=== PATIENT | female | born 1995 | race Caucasian/White ===

== ENCOUNTER 2019-11-27 20:38 | Emergency (ER) | payer OTHER ==
[~2019-11-27] VITALS: Ht 167.6 cm; Wt 108.9 kg
[2019-11-27 20:52] VITALS: BP_SYST 159
--- NOTE | 2019-11-27 21:03 | NUR ---
Patient to ER bed 05 to gown for evaluation. Side rails up.
--- NOTE | 2019-11-27 21:10 | NUR ---
pt a&o x4 from home c/o of hives on right arm, upper thighs, and swollen lips. pt states the reaction started yesterday around 4pm after bbqing outside at her home. pt took benadryl this morning at 9am and this afternoon at 4pm, woke up and saw her lips swollen and decided to come in. pt reports feeling difficulty swallowing earlier today but denies trouble breathing or difficulty swallowing at this time. pt denies itchiness, nausea, vomiting. pt denies allerigies to any medications or food products.
--- NOTE | 2019-11-27 21:30 | NUR ---
ER Dr. Oconnor at bedside examining patient.
[2019-11-27] MEDS ORDERED: predniSONE 20 MG TABLET PO ONE (21:45)
[2019-11-27] MEDS ORDERED: FAMOTIDINE 20 MG TABLET PO ONE (21:45)
[2019-11-27 22:17] VITALS: BP_SYST 153
--- NOTE | 2019-11-27 22:17 | NUR ---
Patient given written and verbal discharge instructions and verbalizes understanding. ER MD discussed with patient the results and treatment provided. Patient in stable condition. ID arm band removed. Rx of prednisone given. Patient educated on pain management and to follow up with PMD. Pain Scale 0/10. Opportunity for questions provided and answered. Medication side effect fact sheet provided.
== END 2019-11-27 22:17 | disposition home or self-care (01) ==
LOC: SED 20:38
DX: L50.9 Urticaria, unspecified (principal); I10 Essential (primary) hypertension
CPT/HCPCS: 99283; J7512

== ENCOUNTER 2022-02-23 21:19 | Emergency (ER) | payer OTHER ==
[~2022-02-23] VITALS: Ht 167.6 cm; Wt 113.4 kg
[2022-02-23 21:25] VITALS: BP_SYST 167
[2022-02-23] MEDS ORDERED: AMOXICILLIN 500 MG CAPSULE PO ONE (23:00)
[2022-02-23] MEDS ORDERED: AMOX500C2 PO (23:30)
[2022-02-23] MEDS ORDERED: CIPR10DR17 OT (23:30)
[2022-02-23] MEDS ORDERED: ACET-2634 PO (23:31)
[2022-02-23 23:44] VITALS: BP_SYST 150
== END 2022-02-23 23:44 | disposition home or self-care (01) ==
LOC: SED 21:19
DX: H66.91 Otitis media, unspecified, right ear (principal); H92.01 Otalgia, right ear; I10 Essential (primary) hypertension; Z79.899 Other long term (current) drug therapy
CPT/HCPCS: 99283

== ENCOUNTER 2022-07-29 21:33 | Emergency (ER) | payer OTHER ==
[~2022-07-29] VITALS: Ht 167.6 cm; Wt 117.9 kg
[~2022-07-29 21:33] MED LIST: ACET-2634 PO; AMOX500C2 PO; CIPR10DR17 OT
[2022-07-29 21:43] VITALS: BP_SYST 161
[2022-07-29] MEDS ORDERED: LABETALOL HCL 20 MG/4 ML CARTRIDGE IVP ONE ×2 (22:30→23:45)
[2022-07-29] MEDS ORDERED: hydrALAZINE HCL 20 MG/ML VIAL IVP ONE (22:30)
[2022-07-29 23:42] LABS: ANION GAP 7 (5-15); CALCIUM 8.9 mg/dL (8.4-11.0); CHLORIDE 104 mmol/L (98-107); CREATININE 0.81 mg/dL (0.55-1.30); GFR AFRICAN AMERICAN 108 mL/min (>90); GLUCOSE 109 mg/dL (70-99); UREA NITROGEN, BLOOD 6 mg/dL (8-21)
[2022-07-29 23:49] LABS: ALANINE AMINOTRANSFERASE 42 U/L (12-78); ALBUMIN 3.6 g/dL (3.4-4.8); ASPARTATE AMINOTRANSFERASE 18 U/L (10-37); TOTAL BILIRUBIN 0.3 mg/dL (0.0-1.0)
[2022-07-29 23:54] LABS: BASOPHILS # (AUTO) 0.1 K/uL (0.0-0.2); BASOPHILS % (AUTO) 0.8 % (0.0-2.0); EOSINOPHILS # (AUTO) 0.4 K/uL (0.0-0.4); EOSINOPHILS % (AUTO) 2.6 % (0.0-4.0); HEMATOCRIT 39.8 % (36-48); HEMOGLOBIN 13.4 g/dL (12.0-16.0); LYMPHOCYTES # (AUTO) 3.2 K/uL (1.0-5.5); LYMPHOCYTES % (AUTO) 22.4 % (20.5-51.5); MEAN CORPUSCULAR HEMOGLOBIN 28 pg (27-31); MEAN CORPUSCULAR HGB CONC 34 % (32-36); MEAN CORPUSCULAR VOLUME 83 fL (79.0-98.0); MONOCYTES # (AUTO) 0.9 K/uL (0.0-1.0); MONOCYTES % (AUTO) 6.3 % (1.7-9.3); NEUTROPHILS # (AUTO) 9.6 K/uL (1.8-7.7); NEUTROPHILS % (AUTO) 67.9 % (40.0-70.0); PLATELET COUNT (AUTO) 402 K/uL (130-430); RED BLOOD CELL COUNT(AUTO) 4.82 MIL/uL (4.2-6.2); RED CELL DISTRIBUTION WIDTH 14.1 % (9.0-15.0); WHITE BLOOD COUNT (AUTO) 14.2 K/uL (4.8-10.8)
[2022-07-30] MEDS ORDERED: ENALAPRILAT DIHYDRATE 1.25 MG/ML VIAL IVP ONE (01:00)
[2022-07-30 01:09] VITALS: BP_SYST 167
[2022-07-30] MEDS ORDERED: LISI20TA30 PO (02:02)
[2022-07-30] MEDS ORDERED: TOPXL100 PO (02:02)
== END 2022-07-30 02:16 | disposition home or self-care (01) ==
LOC: SED 21:33
DX: I10 Essential (primary) hypertension (principal); R00.2 Palpitations; Z79.899 Other long term (current) drug therapy
CPT/HCPCS: 99285; 96374; 96375 ×2; 80053; 83880; 85025; 84484; 36415; 93005; 96376; J0360

== ENCOUNTER 2023-01-08 16:44 | Emergency (ER) | payer OTHER ==
[~2023-01-08] VITALS: Ht 167.6 cm; Wt 108.9 kg
[~2023-01-08 16:44] MED LIST changes: +LISI20TA30 PO; +TOPXL100 PO
[2023-01-08 17:21] VITALS: BP_SYST 201; PULSE 83; RESP 18; TEMP 98.3; O2SAT 98
[2023-01-08 18:55] LABS: BILIRUBIN,URINE NEGATIVE (NEGATIVE); BLOOD, URINE 1+ (NEGATIVE); CLARITY/URINE CLEAR (CLEAR); COLOR,URINE YELLOW (YELLOW); GLUCOSE,URINE NEGATIVE (NEGATIVE); KETONES,URINE NEGATIVE (NEGATIVE); LEUKOCYTE ESTERASE ,URINE NEGATIVE (NEGATIVE); NITRITE, URINE NEGATIVE (NEGATIVE); PROTEIN URINE NEGATIVE (NEGATIVE); UROBILINOGEN,URINE 0.2 (0.2-1.0)
[2023-01-08 19:01] LABS: BACTERIA,URINE RARE /HPF (None Seen); MUCUS,URINE None Seen /LPF (None Seen); RBC,URINE 0-3 /HPF (0-3); WBC,URINE NONE SEEN /HPF (0-3)
[2023-01-08] MEDS ORDERED: ONDANSETRON 4 MG ODT TAB PO ONE (21:00)
[2023-01-08] MEDS ORDERED: KETOROLAC TROMETHAMINE 60 MG/2 ML VIAL IM ONE (21:00)
[2023-01-08] MEDS ORDERED: IBUP-1971 PO (22:18)
[2023-01-08] MEDS ORDERED: ONDA-8 TL (22:18)
[2023-01-08] MEDS ORDERED: METR-154 PO (22:27)
[2023-01-08] MEDS ORDERED: SULF1TAB48 PO (22:27)
[2023-01-08] MEDS ORDERED: SULFAMETHOXAZOLE/TRIMETHOPR DS 1 TABLET PO ONE (22:30)
[2023-01-08] MEDS ORDERED: metroNIDAZOLE 500 MG TABLET PO ONE (22:30)
[2023-01-08 22:45] VITALS: BP_SYST 178; PULSE 99; RESP 18; TEMP 97.2; O2SAT 95
== END 2023-01-08 22:45 | disposition home or self-care (01) ==
LOC: SED 16:44
DX: K57.32 Diverticulitis of large intestine without perforation or abscess without bleeding (principal); I10 Essential (primary) hypertension; Z79.899 Other long term (current) drug therapy
CPT/HCPCS: 99285; 74176; 76830; 76857; 81001; 76376; 81025; 96372; Q0162; J1885; 81000; 81015